=== PATIENT | male | born 1955 | race Caucasian/White ===

== ENCOUNTER 2018-09-21 06:29 | Day surgery (SDC) | payer MEDICARE, BC ==
[~2018-09-21] VITALS: Ht 172.7 cm; Wt 75.0 kg
[2018-09-21] VITALS (8 sets, daily range): BP systolic 96–111; BP diastolic 62–80
[2018-09-21] MEDS ORDERED: FLO0.4C PO (06:43)
[2018-09-21] MEDS ORDERED: ALPR1TAB2 PO (06:44)
[2018-09-21] MEDS ORDERED: meperidine/PF 100mg/ml syringe ONE (06:49)
[2018-09-21] MEDS ORDERED: glucagon, human recombinant 1mg kit ONE (06:50)
[2018-09-21] MEDS ORDERED: MIDAZolam 5mg/5ml vial ONE (06:50)
[2018-09-21] MEDS ORDERED: levoFLOXACIN-Levaquin 500mg/D5 100 ML IV ONE (06:50)
[2018-09-21] MEDS ORDERED: fentaNYL/PF 50MCG/1 ML 2ML syringe ONE (06:50)
[2018-09-21] MEDS ORDERED: diphenhydrAMINE 50 mg/ml inj ONE (06:50)
[2018-09-21] MEDS ORDERED: iohexol 300 MG/1 ML 50ml polymer ONE (06:51)
[2018-09-21] MEDS ORDERED: LIDOcaine Viscous 15ml cup ONE (06:51)
[2018-09-21 09:46] LABS: BASOPHILS # (AUTO) 0.1 X10'3 (0-0.2); BASOPHILS % (AUTO) 0.7 % (0-1); EOSINOPHILS # (AUTO) 0.1 X10'3 (0-0.9); EOSINOPHILS % (AUTO) 1.8 % (0-6); HEMATOCRIT 35.1 % (42.0-52.0); HEMOGLOBIN 11.5 g/dl (14.0-17.9); LYMPHOCYTES # (AUTO) 0.6 X10'3 (1.1-4.8); LYMPHOCYTES % (AUTO) 8.2 % (21-51); MEAN CORPUSCULAR HEMOGLOBIN 29.8 PG (27.0-31.0); MEAN CORPUSCULAR HGB CONC 32.9 g/dL (33.0-36.5); MEAN CORPUSCULAR VOLUME 90.6 FL (78-98); MONOCYTES # (AUTO) 0.8 X10'3 (0-0.9); MONOCYTES % (AUTO) 10.8 % (2-12); NEUTROPHILS # (AUTO) 6.1 X10'3 (1.8-7.7); NEUTROPHILS % (AUTO) 78.5 % (42-75); PLATELET COUNT 423 X10'3 (140-440); RED BLOOD COUNT 3.87 X10'6 (4.70-6.10); RED CELL DISTRIBUTION WIDTH 13.5 % (11.5-14.5); WHITE BLOOD COUNT 7.8 X10'3 (4.5-11.0)
[2018-09-21 09:59] LABS: ALANINE AMINOTRANSFERASE 181 U/L (12-78); ALBUMIN 2.7 G/DL (3.4-5.0); ALBUMIN/GLOBULIN RATIO 0.6 (1.1-1.5); ALKALINE PHOSPHATASE 410 IU/L (46-116); ANION GAP 8 (8-16); ASPARTATE AMINO TRANSFERASE 123 U/L (10-37); BILIRUBIN,TOTAL 1.3 MG/DL (0.1-1.0); BLOOD UREA NITROGEN 16 MG/DL (7-18); BUN/CREATININE RATIO 12.6 (5.4-32.0); CALCIUM 8.7 MG/DL (8.5-10.1); CHLORIDE 103 MMOL/L (99-107); CREATININE 1.27 MG/DL (0.60-1.10); GLUCOSE 106 MG/DL (70-104); POTASSIUM 4.2 MMOL/L (3.5-5.1); SODIUM 138 MMOL/L (135-145); TOTAL CARBON DIOXIDE 26.6 MMOL/L (24-32); TOTAL PROTEIN 7.2 G/DL (6.4-8.2); eGFR 57 ML/MIN
== END 2018-09-21 10:00 | disposition home or self-care (01) ==
LOC: GI LAB 06:29
PROVIDERS: ATTEND Internal Medicine Gastroenterology
DX: K91.89 Other postprocedural complications and disorders of digestive system (principal); Z90.49 Acquired absence of other specified parts of digestive tract; Z98.890 Other specified postprocedural states
CPT/HCPCS: 36415; 43274; 80053; 85025; 99152; 99153; J1200; J1610; J1956; J2175; J2250; J3010; J7030; Q9967; A4620